=== PATIENT | female | born 1995 | race Caucasian/White ===

== ENCOUNTER 2016-11-26 17:46 | Emergency (ER) | payer SELFPAY ==
[~2016-11-26] VITALS: Ht 177.8 cm; Wt 69.0 kg
[~2016-11-26 17:46] MED LIST: HYOS0.374 PO
[2016-11-26 17:47] VITALS: BP 153/94
[2016-11-26] MEDS ORDERED: XANA0.25 PO (18:21)
== END 2016-11-26 18:44 | disposition home or self-care (01) ==
LOC: M ED 17:46
DX: F32.9 Major depressive disorder, single episode, unspecified (principal); F41.9 Anxiety disorder, unspecified

== ENCOUNTER 2016-12-08 12:08 | Emergency (ER) | payer SELFPAY ==
[~2016-12-08] VITALS: Ht 177.8 cm; Wt 69.6 kg
[2016-12-08 12:08] VITALS: BP 128/67
[~2016-12-08 12:08] MED LIST changes: +XANA0.25 PO
[2016-12-08] MEDS ORDERED: ERYTHROMYCIN OPHTH OINT OU ONE (12:30)
[2016-12-08] MEDS ORDERED: ERYT5OPO OU (12:31)
== END 2016-12-08 12:43 | disposition home or self-care (01) ==
LOC: M ED 12:08
DX: H10.32 Unspecified acute conjunctivitis, left eye (principal); F41.9 Anxiety disorder, unspecified; F33.8 Other recurrent depressive disorders; F17.210 Nicotine dependence, cigarettes, uncomplicated

== ENCOUNTER 2016-12-10 14:15 | Emergency (ER) | payer SELFPAY ==
[~2016-12-10] VITALS: Ht 177.8 cm; Wt 68.5 kg
[~2016-12-10 14:15] MED LIST changes: +ERYT5OPO OU
[2016-12-10] MEDS ORDERED: IBUPROFEN 600 MG TAB PO ONE (16:00)
[2016-12-10 16:14] LABS: MEAN CORPUSCULAR HEMOGLOBIN 29.2 pg (27.0-33.0); MEAN CORPUSCULAR HGB CONC 33.5 g/dl (32.0-36.5); MEAN CORPUSCULAR VOLUME 87.2 fl (80.0-96.0); WHITE BLOOD COUNT 6.9 K/mm3 (4.0-10.0)
--- NOTE | 2016-12-10 16:36 | REP ---
Chest two views HISTORY: Cough Comparison: 07/01/2014 The lungs are clear. The heart is normal in size. The pulmonary vasculature is normal in appearance. The bony structure is intact. IMPRESSION: No acute disease. Signed by Manoj Newman MD 12/10/2016 04:24 P
[2016-12-10] MEDS ORDERED: ALBU17IN2 INH (16:40)
[2016-12-10] MEDS ORDERED: IBUP-1022 PO (16:40)
[2016-12-10 16:52] VITALS: BP 128/85
[2016-12-10] MEDS ORDERED: GENTAMICIN 0.3% OPHTH SOL 5 ML BTL OU ONE (17:00)
[2016-12-10] MEDS ORDERED: ERYTHROMYCIN OPHTH OINT OU ONE (17:00)
== END 2016-12-10 17:09 | disposition home or self-care (01) ==
LOC: M ED 14:15
DX: B34.9 Viral infection, unspecified (principal); R09.1 Pleurisy; F17.210 Nicotine dependence, cigarettes, uncomplicated

== ENCOUNTER 2017-01-07 20:51 | Inpatient (IN) | payer SELFPAY ==
[~2017-01-07] VITALS: Ht 177.8 cm; Wt 68.2 kg
[~2017-01-07 20:51] MED LIST changes: +ALBU17IN2 INH; +IBUP-1022 PO
[2017-01-07 22:28] LABS: MEAN CORPUSCULAR HEMOGLOBIN 28.9 pg (27.0-33.0); MEAN CORPUSCULAR HGB CONC 33.1 g/dl (32.0-36.5); MEAN CORPUSCULAR VOLUME 87.3 fl (80.0-96.0); RED CELL DISTRIBUTION WIDTH 13.2 % (11.5-14.5); WHITE BLOOD COUNT 6.6 K/mm3 (4.0-10.0)
[2017-01-07 22:39] LABS: CONTROL LINE HCG INT CTR LINE PRESENT
[2017-01-07 22:47] LABS: METHADONE URINE NEGATIVE (NEGATIVE)
[2017-01-07 23:02] LABS: ALBUMIN 4.3 GM/DL (3.2-5.2); ALBUMIN/GLOBULIN RATIO 1.43 (1.00-1.93); ALKALINE PHOSPHATASE 45 U/L (45-117); ALT/SGPT 18 U/L (12-78); ANION GAP 6 MEQ/L (8-16); AST/SGOT 14 U/L (15-37); BILIRUBIN,DIRECT 0.1 MG/DL (0.0-0.2); BILIRUBIN,TOTAL 0.3 MG/DL (0.2-1.0); BLOOD UREA NITROGEN 9 MG/DL (7-18); CALCIUM LEVEL 9.1 MG/DL (8.5-10.1); CARBON DIOXIDE LEVEL 29 MEQ/L (21-32); CHLORIDE LEVEL 105 MEQ/L (98-107); CREATININE FOR GFR 0.71 MG/DL (0.55-1.02); GLOMERULAR FILTRATION RATE > 60.0 (>60); GLUCOSE, FASTING 109 MG/DL (70-105); POTASSIUM SERUM 4.2 MEQ/L (3.5-5.1); SODIUM LEVEL 140 MEQ/L (136-145); TOTAL PROTEIN 7.3 GM/DL (6.4-8.2)
[2017-01-08] MEDS ORDERED: traZODone 50 MG TAB PO PRN (01:15)
[2017-01-08] MEDS ORDERED: MAALOX 30 ML SUSP *UDC PO PRN (01:15)
[2017-01-08] MEDS ORDERED: MOM 30ML SUSPENSION UDC PO PRN (01:15)
[2017-01-08] MEDS ORDERED: ACETAMINOPHEN TAB 650MG DOSE (2X325MG) PO PRN (01:15)
[2017-01-08 02:38] VITALS: BP 125/82
[2017-01-08 06:00] VITALS: BP 130/68
[2017-01-08] MEDS: NICOTINE 21MG/24HR 1 EA TRANSDERMAL TD SCH (08:47)
--- NOTE | 2017-01-08 09:25 | HPEPDOC ---
Medical History and Physical Date of Admission Jan 08, 2017 at 01:12 History and Physical PCP: None ATTENDING: Dr. Venkata Johns HPI: 21yoF admitted to [facility] for depressive disorder, being medically examined today. No acute medical complaints today. Denies any fevers, chills, weakness, fatigue, PAZ, CP, SOB, cough, palpitations, abdominal pain, N/V/D or changes in bowel or bladder habits. PMHx: Anxiety Depression PSHX: Hip surgery as child SOCHX: Resides in: [facility] Marital Status: Single Kids: None Employment: Employed at [employer] Tobacco use: Denies ETOH: Denies Illicit Drugs: Denies IV Drug Use: Denies Tattoos done unprofessionally: Denies FAMHX: Mother: Alive, hypertension Father: Alive, history of benign brain tumor Siblings: Alive, well Children: None Unexpected deaths due to medical reasons: None. ROS: As noted in HPI, otherwise 11pt ROS of systems reviewed and remarkable only for LMP 01/05/17 PE: GEN: 21 yo F, appears stated age. Well-nourished, well developed. No acute distress. Alert and oriented x 3. Pleasant, interactive. HEENT: Normocephalic, atraumatic. Pupils are equal, round, and reactive to light. Extraocular movements are intact. No nystagmus appreciated. Sclera are nonicteric. Conjunctiva without injection. Nose midline. Nasal turbinates without bogginess. EACs both patent BL. TMs both visualized and michelle with good cone of light, no bulging or erythema. No facial asymmetry. Moist mucous membranes. Dentition fair. Pharynx pink and moist, no cobblestoning. Neck supple , trachea midline. No lymphadenopathy or thyromegaly appreciated. CHEST: Regular rate and rhythm, +S1, +S2 LUNGS: Clear to auscultation bilaterally. No wheezes, rales, or rhonchi. Breathing appears symmetric and easy. Patient is speaking in full sentences. No accessory muscle use. ABD: Round, soft, non-tender, non-distended. +Bowel sounds throughout. No rebound or guarding. No costovertebral angle tenderness. EXT: Pulses 2+ bilaterally dorsalis pedis and radial. No lower extremity edema appreciated. SKIN: [place], dry, warm. Capillary refill <2sec. No rashes. NEURO: Alert and oriented x 3. Cranial nerves III-XII are intact. No focal deficits appreciated. EKG: pending. A&P: 21yoF admitted to [facility] for depressive disorder, 1. Psych. Plan per Psychiatry. Obtain baseline EKG to assure the safety of psychiatric medications as they can prolong the QT interval. 2. Follow up. No Primary Care Provider. Will attempt to establish PCP on discharge. 3. Staff member Lissa AMANDA present throughout exam. Vital Signs Vital Signs Date Time Temp Pulse Resp B/P (MAP) Pulse Ox O2 Delivery O2 Flow Rate FiO2 01/08/17 06:00 98.9 84 16 130/68 (88) 84 01/08/17 02:38 Room Air Laboratory Data Labs 24H Laboratory Tests 2 01/07/17 22:04: Anion Gap 6L, Glomerular Filtration Rate > 60.0, Calcium Level 9.1, Aspartate Amino Transf (AST/SGOT) 14L, Alanine Aminotransferase (ALT/SGPT) 18, Alkaline Phosphatase 45, Total Bilirubin 0.3, Direct Bilirubin 0.1, Total Protein 7.3, Albumin 4.3, Albumin/Globulin Ratio 1.43, Thyroid Stimulating Hormone (TSH) 1.320, Human Chorionic Gonadotropin, Qual NEGATIVE, Salicylates Level < 1.7L, Acetaminophen Level < 2.0L, Ethyl Alcohol Level < 0.003 01/07/17 22:05: Urine Amphetamines Screen NEGATIVE, Urine Benzodiazepines Screen NEGATIVE, Urine Opiates Screen NEGATIVE, Urine Methadone Screen NEGATIVE, Urine Barbiturates Screen NEGATIVE, Urine Phencyclidine Screen NEGATIVE, Urine Cocaine Metabolite Screen NEGATIVE, Urine Cannabinoids Screen NEGATIVE CBC/BMP Laboratory Tests 01/07/17 22:04 01/07/17 22:05 Red Blood Count 4.48, Mean Corpuscular Volume 87.3, Mean Corpuscular Hemoglobin 28.9, Mean Corpuscular Hemoglobin Concent 33.1, Red Cell Distribution Width 13.2 Home Medications No Active Prescriptions or Reported Meds Allergies Coded Allergies: No Known Allergies (Unverified , 11/26/16) Marlyn Madrid Jan 08, 2017 09:25
[2017-01-08] MEDS: SERTRALINE HCL 50 MG TAB PO SCH (11:25)
[2017-01-08] MEDS: hydrOXYzine 25 MG TAB PO PRN (11:26)
--- NOTE | 2017-01-08 16:56 | ECGEPIP ---
Stationary ECG Study [facility] Test Date: 2017-01-08 Pat Name: KENTRELL DANG Department: Room: [place] [address] Gender: F Obedience Trainer: KAVIN : 1995 Requested By: Marlyn Madrid Order Number: [id number] Reading MD: Jesus Herrera Measurements Intervals [place] Rate: 81 P: 59 MO: 143 QRS: 77 QRSD: 88 T: 28 QT: 319 QTc: 370 Interpretive Statements Normal sinus rhythm with sinus arrhythmia Prominent QRS voltage Comparison tracing not on file Electronically Signed On 01-08-2017 16:55:54 EDT by Jesus Herrera
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
[2017-01-08 18:00] VITALS: BP 130/80
[2017-01-09 06:47] VITALS: BP 124/71
[2017-01-09] MEDS: hydrOXYzine 25 MG TAB PO PRN (08:31)
[2017-01-09] MEDS: SERTRALINE HCL 50 MG TAB PO SCH (08:31)
[2017-01-09] MEDS: NICOTINE 21MG/24HR 1 EA TRANSDERMAL TD SCH (08:32)
[2017-01-09 18:13] VITALS: BP 118/77
--- NOTE | 2017-01-09 22:23 | IPN ---
DATE: 01/09/2017 SUBJECTIVE: The patient states, "I'm doing better." she says her mood is 3/10, with the closer to 10 as the most depressed. She says she is sleeping well even without getting trazodone. She says she is eating well too. MENTAL STATUS EXAMINATION: She is alert and oriented times three. Eye contact is fairly good. She is verbally spontaneous. There is no formal thought disorder noted. She says her mood is better. Affect is constricted but appropriate to her mood. Concentration is fair. Memory intact. Insight and judgment are poor. DIAGNOSES: Major depressive disorder, recurrent, severe without psychotic symptoms. Anxiety disorder, unspecified. TREATMENT PLAN: We will continue to evaluation and monitor the patient for continued stabilization and continued resolution of any suicidal or homicidal ideations. SILVIA
[2017-01-10 06:45] VITALS: BP 125/79
[2017-01-10] MEDS: SERTRALINE HCL 50 MG TAB PO SCH (08:26)
[2017-01-10] MEDS: NICOTINE 21MG/24HR 1 EA TRANSDERMAL TD SCH (08:26)
[2017-01-10 18:12] VITALS: BP 130/78
--- NOTE | 2017-01-10 19:12 | IPN ---
DATE: 01/10/2017 SUBJECTIVE: The patient today states, "I'm feeling better." She says her mood is about a 3/10 with closer to 10 as the most depressed. She says she slept well. She has been going to groups and that has been helping her also. MENTAL STATUS EXAMINATION: She is alert and oriented times three. Eye contact is fair. Psychomotor activity is normal. She is verbally spontaneous. There is no formal thought disorder noted. Mood is "better." Affect full range and appropriate. She is not psychotic, suicidal, or homicidal. Concentration fair. Memory intact. Insight and judgment fair. DIAGNOSIS: Major depressive disorder, recurrent, severe without psychotic symptoms. Anxiety disorder, unspecified. TREATMENT PLAN: We will continue to further monitor the patient for continued elevation and stabilization of her mood and for continued resolution of suicidal ideations. SILVIA
[2017-01-11 07:04] VITALS: BP 102/69
[2017-01-11] MEDS: hydrOXYzine 25 MG TAB PO PRN (08:12)
[2017-01-11] MEDS: SERTRALINE HCL 50 MG TAB PO SCH (08:12)
[2017-01-11] MEDS: NICOTINE 21MG/24HR 1 EA TRANSDERMAL TD SCH (08:12)
[2017-01-11] MEDS ORDERED: TRAZO50TA PO (12:40)
[2017-01-11] MEDS ORDERED: HYDR-3363 PO (12:40)
[2017-01-11] MEDS ORDERED: SERT-155 PO (12:40)
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
[2017-01-12] MEDS ORDERED: SERTRALINE 100 MG TAB PO SCH (09:00)
== END 2017-01-11 13:45 | disposition home or self-care (01) | DRG 756 ==
LOC: M ED 20:51 → M ED INP 01-08 01:12 → M PSY 01-08 02:38
PROVIDERS: ADMIT Psychiatry & Neurology Psychiatry; ATTEND Psychiatry & Neurology Psychiatry
DX: F41.9 Anxiety disorder, unspecified (principal); F32.9 Major depressive disorder, single episode, unspecified

== ENCOUNTER → 2017-05-13 | Outpatient (CLI) | payer MEDICAID ==
[2017-05-13 13:13] LABS: BASO % 0.8 % (0.0-1.0); EOS # 0.1 10^3/uL (0.0-0.50); EOS % 2.8 % (0.0-3.0); HEMATOCRIT 39.8 % (36.0-47.0); HEMOGLOBIN 13.1 g/dl (12.0-16.0); IMMATURE GRANULOCYTE % 0.2 % (0-0); LYMPH # 1.7 10^3/uL (1.5-6.5); LYMPH % 35.7 % (24.0-44.0); MEAN CORPUSCULAR HEMOGLOBIN 28.4 pg (27.0-33.0); MEAN CORPUSCULAR HGB CONC 32.9 g/dl (32.0-36.5); MEAN CORPUSCULAR VOLUME 86.3 fl (80.0-96.0); MONO # 0.4 10^3/uL (0.0-0.8); MONO % 8.7 % (0.0-5.0); NEUTROPHILS # 2.4 10^3/uL (1.8-7.7); NEUTROPHILS % 51.8 % (36.0-66.0); PLATELET COUNT, AUTOMATED 365 10^3/uL (150-450); RED BLOOD COUNT 4.61 10^6/uL (4.00-5.40); RED CELL DISTRIBUTION WIDTH 13.2 % (11.5-14.5); WHITE BLOOD COUNT 4.7 10^3/uL (4.0-10.0)
[2017-05-13 14:01] LABS: TOTAL 25(OH) VITAMIN D 30.5 NG/ML (30.0-100.0); VITAMIN B12 LEVEL 441 PG/ML (247-911)
[2017-05-13 14:17] LABS: ALBUMIN 4.6 GM/DL (3.2-5.2); ALBUMIN/GLOBULIN RATIO 1.59 (1.00-1.93); ALKALINE PHOSPHATASE 43 U/L (45-117); ALT/SGPT 16 U/L (12-78); ANION GAP 7 MEQ/L (8-16); AST/SGOT 15 U/L (7-37); BILIRUBIN,TOTAL 0.4 MG/DL (0.2-1.0); BLOOD UREA NITROGEN 14 MG/DL (7-18); CARBON DIOXIDE LEVEL 27 MEQ/L (21-32); CHLORIDE LEVEL 105 MEQ/L (98-107); CHOLESTEROL LEVEL 168 MG/DL (<200); CHOLESTEROL RISK RATIO 2.947 (<5); CREATININE FOR GFR 0.69 MG/DL (0.55-1.02); GLOMERULAR FILTRATION RATE > 60.0 (>60); GLUCOSE, FASTING 111 MG/DL (70-105); HDL CHOLESTEROL 57 MG/DL (>40); LDL CHOLESTEROL 101.2 MG/DL (<100); NON-HDL-C 111 MG/DL; POTASSIUM SERUM 4.3 MEQ/L (3.5-5.1); SODIUM LEVEL 139 MEQ/L (136-145); TOTAL PROTEIN 7.5 GM/DL (6.4-8.2); TRIGLYCERIDES LEVEL 49 MG/DL (<150)
== END ==
LOC: M LAB 12:20
DX: F41.1 Generalized anxiety disorder (principal)
CPT/HCPCS: 84443

== ENCOUNTER 2017-07-07 12:28 | Emergency (ER) | payer MEDICAID | END 2017-07-07 14:15 | disposition home or self-care (01) | LOC: M ED 12:28 | DX: R21 Rash and other nonspecific skin eruption (principal); T78.40XA Allergy, unspecified, initial encounter; F33.9 Major depressive disorder, recurrent, unspecified; F41.9 Anxiety disorder, unspecified; Z87.891 Personal history of nicotine dependence | CPT/HCPCS: 99283 ==

== ENCOUNTER → 2017-10-27 | Outpatient (REF) | payer MEDICAID, SELFPAY ==
[2017-10-27 20:05] LABS: ALBUMIN 4.5 GM/DL (3.2-5.2); ALBUMIN/GLOBULIN RATIO 1.41 (1.00-1.93); ALKALINE PHOSPHATASE 54 U/L (45-117); ALT/SGPT 23 U/L (12-78); ANION GAP 6 MEQ/L (8-16); AST/SGOT 14 U/L (7-37); BILIRUBIN,TOTAL 0.4 MG/DL (0.2-1.0); BLOOD UREA NITROGEN 13 MG/DL (7-18); CALCIUM LEVEL 9.5 MG/DL (8.5-10.1); CARBON DIOXIDE LEVEL 32 MEQ/L (21-32); CHLORIDE LEVEL 105 MEQ/L (98-107); CREATININE FOR GFR 0.78 MG/DL (0.55-1.30); FREE T4 0.82 NG/DL (0.76-1.46); GLOMERULAR FILTRATION RATE > 60.0 (>60); GLUCOSE, FASTING 90 MG/DL (70-100); POTASSIUM SERUM 3.9 MEQ/L (3.5-5.1); SODIUM LEVEL 143 MEQ/L (136-145); TOTAL PROTEIN 7.7 GM/DL (6.4-8.2)
[2017-10-27 20:12] LABS: BASO # 0.1 10^3/uL (0.0-0.2); BASO % 0.8 % (0.0-1.0); EOS # 0.2 10^3/uL (0.0-0.50); EOS % 2.7 % (0.0-3.0); HEMATOCRIT 45.2 % (36.0-47.0); HEMOGLOBIN 14.4 g/dl (12.0-15.5); IMMATURE GRANULOCYTE % 0.3 % (0-3.0); LYMPH # 1.8 10^3/uL (1.5-6.5); LYMPH % 28.8 % (24.0-44.0); MEAN CORPUSCULAR HGB CONC 31.9 g/dl (32.0-36.5); MEAN CORPUSCULAR VOLUME 87.8 fl (80.0-96.0); MONO # 0.7 10^3/uL (0.0-0.8); MONO % 10.7 % (0.0-5.0); NEUTROPHILS # 3.6 10^3/uL (1.8-7.7); NEUTROPHILS % 56.7 % (36.0-66.0); PLATELET COUNT, AUTOMATED 437 10^3/uL (150-450); RED BLOOD COUNT 5.15 10^6/uL (4.00-5.40); RED CELL DISTRIBUTION WIDTH 14.2 % (11.5-14.5); WHITE BLOOD COUNT 6.3 10^3/uL (4.0-10.0)
[2017-10-27 20:21] LABS: INR 0.97; PROTHROMBIN TIME 12.9 SECONDS (12.1-14.4)
[2017-10-27 20:26] LABS: TOTAL T3 78.3 NG/DL (60.0-181.0)
[2017-10-29 09:57] LABS: HEPATITIS C VIRUS ABY INDEX 0.1 INDEX (<0.8)
== END ==
LOC: M LAB REF 19:23
DX: R63.4 Abnormal weight loss (principal); K52.9 Noninfective gastroenteritis and colitis, unspecified; Z11.3 Encounter for screening for infections with a predominantly sexual mode of transmission
CPT/HCPCS: 84443

== ENCOUNTER → 2017-10-27 | Outpatient (REF) | payer MEDICAID, SELFPAY ==
[2017-10-27 18:47] LABS: AMORPHOUS SEDIMENT MODERATE (NEGATIVE); APPEARANCE, URINE CLOUDY (CLEAR); BACTERIA, URINE AUTO NEGATIVE (NEGATIVE); BILIRUBIN, URINE AUTO NEGATIVE (NEGATIVE); BLOOD, URINE BLOOD NEGATIVE (NEGATIVE); COLOR, URINE YELLOW (YELLOW); GLUCOSE, URINE (UA) AUTO NEGATIVE (NEGATIVE); KETONE, URINE AUTO NEGATIVE (NEGATIVE); LEUKOCYTE ESTERASE, URINE AUTO NEGATIVE (NEGATIVE); MUCUS, URINE SMALL (NEGATIVE); NITRITE, URINE AUTO NEGATIVE (NEGATIVE); PROTEIN, URINE AUTO NEGATIVE (NEGATIVE); RBC, URINE AUTO 1 /HPF (0-3); SPECIFIC GRAVITY URINE AUTO 1.016 (1.002-1.035); SQUAMOUS EPITHELIAL CELL UR AU 1 /HPF (0-6); UROBILINOGEN, URINE AUTO 0.2 mg/dL (0.0-2.0); WBC, URINE AUTO 3 /HPF (0-3)
[2017-10-27 23:19] LABS: CHLAMYDIA DNA AMPLIFICATION NEGATIVE (NEGATIVE); GC DNA AMPLIFICATION NEGATIVE (NEGATIVE)
== END ==
LOC: M LAB REF 16:49
DX: Z11.3 Encounter for screening for infections with a predominantly sexual mode of transmission (principal); R10.31 Right lower quadrant pain
CPT/HCPCS: 81001

== ENCOUNTER → 2017-12-16 | Outpatient (REF) | payer MEDICAID ==
[2017-12-16 21:55] LABS: CHLAMYDIA DNA AMPLIFICATION NEGATIVE (NEGATIVE); GC DNA AMPLIFICATION NEGATIVE (NEGATIVE)
== END ==
LOC: M SFHCLERA 18:32
DX: N89.8 Other specified noninflammatory disorders of vagina (principal); R30.0 Dysuria
CPT/HCPCS: 87086

== ENCOUNTER 2018-01-11 12:24 | Day surgery (SDC) | payer MEDICAID ==
[2018-01-11] MEDS: NS 1,000 ML IV (12:36)
[2018-01-11] MEDS ORDERED: fentaNYL 100 MCG/2 ML INJECTION (J3010) As Ordered (13:22)
[2018-01-11] MEDS ORDERED: LIDOCAINE 2% INJ 100 MG/5 ML SYRINGE As Ordered (13:22)
== END 2018-01-11 14:10 | disposition home or self-care (01) ==
LOC: M OPP 12:24
DX: R10.84 Generalized abdominal pain (principal); R19.7 Diarrhea, unspecified; K58.0 Irritable bowel syndrome with diarrhea; R11.0 Nausea; F41.9 Anxiety disorder, unspecified; F32.9 Major depressive disorder, single episode, unspecified; R51 Headache; F17.210 Nicotine dependence, cigarettes, uncomplicated; Z79.899 Other long term (current) drug therapy
CPT/HCPCS: 45378

== ENCOUNTER 2018-01-26 07:41 | Emergency (ER) | payer MEDICAID ==
[2018-01-26 08:31] LABS: CONTROL LINE UCG INT CTR LINE PRESENT; URINE PREG TEST NEGATIVE (NEGATIVE)
[2018-01-26] MEDS: NS 1,000 ML IV (08:36)
[2018-01-26 08:40] LABS: KETONE, URINE AUTO RFX NEGATIVE (NEGATIVE); LEUKOCYTE ESTERASE UR AUTO RFX NEGATIVE (NEGATIVE); MUCUS, URINE RFX SMALL (NEGATIVE); NITRITE, URINE AUTO RFX NEGATIVE (NEGATIVE); RBC, URINE AUTO RFX 6 /HPF (0-3); SPECIFIC GRAVITY UR AUTO RFX 1.019 (1.002-1.035); SQUAM EPITHELIAL CELL UR AURFX 2 /HPF (0-6); WBC, URINE AUTO RFX 2 /HPF (0-3)
[2018-01-26 08:46] LABS: BASO % 0.5 % (0.0-1.0); EOS # 0.1 10^3/uL (0.0-0.50); EOS % 1.3 % (0.0-3.0); HEMATOCRIT 43.5 % (36.0-47.0); HEMOGLOBIN 14.2 g/dl (12.0-15.5); IMMATURE GRANULOCYTE % 0.4 % (0-3.0); LYMPH # 1.3 10^3/uL (1.5-6.5); LYMPH % 16.7 % (24.0-44.0); MEAN CORPUSCULAR HEMOGLOBIN 28.7 pg (27.0-33.0); MEAN CORPUSCULAR HGB CONC 32.6 g/dl (32.0-36.5); MEAN CORPUSCULAR VOLUME 88.1 fl (80.0-96.0); MONO # 0.5 10^3/uL (0.0-0.8); MONO % 6.3 % (0.0-5.0); NEUTROPHILS % 74.8 % (36.0-66.0); PLATELET COUNT, AUTOMATED 329 10^3/uL (150-450); RED BLOOD COUNT 4.94 10^6/uL (4.00-5.40); RED CELL DISTRIBUTION WIDTH 14.5 % (11.5-14.5)
[2018-01-26] MEDS: KETOROLAC 30 MG/ML VIAL (J1885) IV (09:16)
[2018-01-26 09:20] LABS: ALBUMIN 4.2 GM/DL (3.2-5.2); ALBUMIN/GLOBULIN RATIO 1.35 (1.00-1.93); ALKALINE PHOSPHATASE 43 U/L (45-117); ALT/SGPT 14 U/L (12-78); ANION GAP 9 MEQ/L (8-16); AST/SGOT 12 U/L (7-37); BILIRUBIN,DIRECT 0.1 MG/DL (0.0-0.2); BILIRUBIN,TOTAL 0.4 MG/DL (0.2-1.0); BLOOD UREA NITROGEN 8 MG/DL (7-18); CALCIUM LEVEL 9.5 MG/DL (8.5-10.1); CARBON DIOXIDE LEVEL 25 MEQ/L (21-32); CHLORIDE LEVEL 107 MEQ/L (98-107); CREATININE FOR GFR 0.76 MG/DL (0.55-1.30); GLOMERULAR FILTRATION RATE > 60.0 (>60); GLUCOSE, FASTING 90 MG/DL (70-100); LIPASE 92 U/L (73-393); POTASSIUM SERUM 4.1 MEQ/L (3.5-5.1); SODIUM LEVEL 141 MEQ/L (136-145); TOTAL PROTEIN 7.3 GM/DL (6.4-8.2)
== END 2018-01-26 10:53 | disposition home or self-care (01) ==
LOC: M ED 07:41
DX: R10.30 Lower abdominal pain, unspecified (principal); K58.9 Irritable bowel syndrome, unspecified; A60.09 Herpesviral infection of other urogenital tract; F32.9 Major depressive disorder, single episode, unspecified; F41.9 Anxiety disorder, unspecified; Z79.3 Long term (current) use of hormonal contraceptives
CPT/HCPCS: J1885

== ENCOUNTER 2018-04-06 14:52 | Emergency (ER) | payer SELFPAY, MEDICAID ==
[2018-04-06] MEDS: NS 1,000 ML IV (15:32)
[2018-04-06 15:40] LABS: BASO # 0.1 10^3/uL (0.0-0.2); EOS # 0.1 10^3/uL (0.0-0.50); EOS % 2.4 % (0.0-3.0); HEMATOCRIT 41.5 % (36.0-47.0); HEMOGLOBIN 14.2 g/dl (12.0-15.5); IMMATURE GRANULOCYTE % 0.2 % (0-3.0); LYMPH # 2.2 10^3/uL (1.5-6.5); LYMPH % 37.7 % (24.0-44.0); MEAN CORPUSCULAR HEMOGLOBIN 29.4 pg (27.0-33.0); MEAN CORPUSCULAR HGB CONC 34.2 g/dl (32.0-36.5); MEAN CORPUSCULAR VOLUME 85.9 fl (80.0-96.0); MONO # 0.5 10^3/uL (0.0-0.8); MONO % 8.4 % (0.0-5.0); NEUTROPHILS # 2.9 10^3/uL (1.8-7.7); NEUTROPHILS % 50.3 % (36.0-66.0); PLATELET COUNT, AUTOMATED 374 10^3/uL (150-450); RED BLOOD COUNT 4.83 10^6/uL (4.00-5.40); RED CELL DISTRIBUTION WIDTH 12.7 % (11.5-14.5); WHITE BLOOD COUNT 5.8 10^3/uL (4.0-10.0)
[2018-04-06] MEDS: MORPHINE 4 MG/ML 1ML VIAL/SYRINGE (J2270) IV (15:41)
[2018-04-06 15:53] LABS: CONTROL LINE HCG INT CTR LINE PRESENT; HCG, SERUM QUALITATIVE NEGATIVE (NEGATIVE)
[2018-04-06] MEDS: NORCO, ANEXSIA 5/325MG TABLET (HYDROcodone/ACETAMINOPHEN) PO (16:55)
[2018-04-06 17:41] LABS: CHLAMYDIA DNA AMPLIFICATION NEGATIVE (NEGATIVE); GC DNA AMPLIFICATION NEGATIVE (NEGATIVE)
== END 2018-04-06 17:00 | disposition home or self-care (01) ==
LOC: M ED 14:52
DX: N93.8 Other specified abnormal uterine and vaginal bleeding (principal); N94.6 Dysmenorrhea, unspecified; B02.9 Zoster without complications; K58.9 Irritable bowel syndrome, unspecified; Z79.3 Long term (current) use of hormonal contraceptives; F17.210 Nicotine dependence, cigarettes, uncomplicated
CPT/HCPCS: J2270

== ENCOUNTER 2018-05-03 23:18 | Emergency (ER) | payer SELFPAY ==
[~2018-05-03] VITALS: Ht 177.8 cm; Wt 61.4 kg
[~2018-05-03 23:18] MED LIST changes: +BENA25TA10 PO; +HYDR-3363 PO; +LAMO100T; +NEXP1IMP SC; +NORCOTAB PO; +PARO25TA; +PRED20TA PO; +SERT-155 PO; +SIME180C PO; +TRAZO50TA PO; +ZOFR4TAB14 PO
[2018-05-04] MEDS ORDERED: ONDANSETRON 4 MG ORAL DISINTEGRATING TAB (Q0162 PER 1MG) PO ONE (00:45)
[2018-05-04] MEDS ORDERED: ZOFR4TAB14 PO (00:50)
[2018-05-04 00:53] VITALS: BP 127/66
== END 2018-05-04 00:55 | disposition home or self-care (01) ==
LOC: M ED 23:18
DX: K52.9 Noninfective gastroenteritis and colitis, unspecified (principal)
CPT/HCPCS: 99283; Q0162

== ENCOUNTER 2018-06-24 14:32 | Emergency (ER) | payer SELFPAY ==
[~2018-06-24] VITALS: Ht 177.8 cm; Wt 63.6 kg
[2018-06-24 15:56] LABS: HEMATOCRIT 41.7 % (36.0-47.0); HEMOGLOBIN 14.2 g/dl (12.0-15.5); MEAN CORPUSCULAR HEMOGLOBIN 29.2 pg (27.0-33.0); MEAN CORPUSCULAR HGB CONC 34.1 g/dl (32.0-36.5); MEAN CORPUSCULAR VOLUME 85.6 fl (80.0-96.0); PLATELET COUNT, AUTOMATED 390 10^3/uL (150-450); RED BLOOD COUNT 4.87 10^6/uL (4.00-5.40); WHITE BLOOD COUNT 8.2 10^3/uL (4.0-10.0)
[2018-06-24 16:23] LABS: BLOOD UREA NITROGEN 10 MG/DL (7-18); CALCIUM LEVEL 9.7 MG/DL (8.5-10.1); CARBON DIOXIDE LEVEL 25 MEQ/L (21-32); CHLORIDE LEVEL 106 MEQ/L (98-107); CREATININE FOR GFR 0.74 MG/DL (0.55-1.30); GLOMERULAR FILTRATION RATE > 60.0 (>60); GLUCOSE, FASTING 87 MG/DL (70-100); POTASSIUM SERUM 4.7 MEQ/L (3.5-5.1); SODIUM LEVEL 139 MEQ/L (136-145)
[2018-06-24 16:26] LABS: HCG, SERUM QUALITATIVE NEGATIVE (NEGATIVE)
[2018-06-24 18:03] VITALS: BP 112/74
--- NOTE | 2018-06-24 18:21 | REP ---
Pelvic ultrasound including transabdominal, endovaginal Doppler ultrasound assessment for left pelvic pain for 24 hours: The bladder is incompletely distended. The uterus is retroverted and retroflexed and measures 8.9 x 3.6 x 5.1 cm and is normal size. The myometrium has a heterogeneous. The endometrium is not thickened measuring 2.0 mm. Right ovary: There is a right ovarian cyst measuring 3.2 x 2.9 x 2.3 cm containing a daughter cysts. Including the cyst the right ovary measures 4.4-0.3 x 3.4 cm and is normal size. There is vascular flow in the right ovary with the Doppler resistive index of the parenchymal arteries measuring 0.51. Left ovary: The left ovary measures 2.5 x 1.7 x 1.8 cm and is normal size. There is no dominant left ovarian mass or cyst. There is vascular flow with the Doppler resistive index of the parenchymal arteries measuring 0.58. There is no free fluid in the pelvis. Impression: There is a right ovarian cyst measuring up to 3.2 cm. There is vascular flow in both ovaries. Heterogeneous myometrium. Electronically Signed by Dave Carreno MD 06/24/2018 06:12 P
[2018-06-24 19:54] LABS: CHLAMYDIA DNA AMPLIFICATION NEGATIVE (NEGATIVE); GC DNA AMPLIFICATION NEGATIVE (NEGATIVE)
--- NOTE | 2018-06-27 07:36 | ED PDOC ---
Post-Departure Follow-Up leila avila and sandi faxed formal report of pelvic us for fu Eric Ferguson MD Jun 27, 2018 07:36
== END 2018-06-24 18:51 | disposition home or self-care (01) ==
LOC: M ED 14:32
DX: N83.202 Unspecified ovarian cyst, left side (principal); N89.8 Other specified noninflammatory disorders of vagina; K58.9 Irritable bowel syndrome, unspecified; R51 Headache; Z97.5 Presence of (intrauterine) contraceptive device